=== PATIENT | male | born 1955 | race Caucasian/White ===

== ENCOUNTER 2016-07-18 13:24 | Day surgery (SDC) | payer OTHER ==
[~2016-07-18] VITALS: Ht 170.2 cm; Wt 80.9 kg
[2016-07-18 13:55] VITALS: Ht 170.2 cm; Wt 80.9 kg
[2016-07-18] MEDS ORDERED: LOVA20TA PO (14:01)
[2016-07-18] MEDS ORDERED: PROZLIQ PO (14:01)
[2016-07-18] MEDS ORDERED: LISI20TA11 PO (14:01)
[2016-07-18 14:26] VITALS: BP 141/88; PULSE 81; RESP 18
[2016-07-18] MEDS ORDERED: MIDAZOLAM 1 MG/ML 2 ML INJ ONE ×2 (15:08)
[2016-07-18] MEDS ORDERED: FENTAnyl 50 MCG/ML VIAL ONE (15:08)
[2016-07-18 15:51] VITALS: BP 138/98; PULSE 63; RESP 18
--- NOTE | 2016-07-18 16:00 | GILP ---
DATE OF PROCEDURE: 07/18/2016 NAME OF PROCEDURE: Colonoscopy. SURGEON: Elizabeth Andrew MD PREOPERATIVE DIAGNOSIS: Positive occult blood in stool. POSTOPERATIVE DIAGNOSES 1. Colonoscopy all the way to the cecum. 2. Internal hemorrhoids. 3. No colon neoplasm was identified. INDICATION FOR THE PROCEDURE: Mr. Derrick Wallace is a 60-year-old male patient who was noted to have positive occult blood in stool. The patient never had screening colonoscopy. The procedure and possible complications were well explained to the patient, he understood and conse nted to the procedure. DESCRIPTION OF PROCEDURE: Under the influence of fentanyl and Versed, the colonoscope was carefully introduced in the rectum and under direct vision, it was advanced all the way to the cecum. FINDINGS: The patient had internal hemorrhoids. No colitis or neoplasm was identified. He tolerated the procedure very well and there was no complication from the procedure. At the end o f the procedure, he was awake with stable vital signs and he was discharged home to the care of his family. IMPRESSION: 1. Colonoscopy all the way to the cecum. 2. Internal hemorrhoids. 3. No colitis or neoplasm was identified. PLAN: Screening colonoscopy in 10 years. Dictated By: ELIZABETH BARRON/TRES Conf#: [id number] DID#: [id number] CC: ELIZABETH ANDREW MD;*EndCC*
== END 2016-07-18 15:20 | disposition home or self-care (01) ==
LOC: GIL 13:24
PROVIDERS: ATTEND Internal Medicine Gastroenterology
DX: K92.1 Melena (principal); K64.8 Other hemorrhoids
CPT/HCPCS: 45378; J2250; J3010; Z7610